=== PATIENT | female | born 1995 | race Caucasian/White ===

== ENCOUNTER 2016-04-26 17:13 | Emergency (ER) | payer OTHER ==
[2016-04-26 18:00] LABS: BASOPHIL 0.7 % (0-2); EOSINOPHIL 3.3 % (0-5); HCT 35.2 % (37.0-47.0); HGB 11.4 g/dl (12.5-16.0); LYMPHOCYTE 26.3 % (15-48); MCH 25.6 pg (25.0-31.0); MCHC 32.4 g/dL (32.0-36.0); MCV 79.1 fL (78.0-100.0); MONOCYTE 5.8 % (0-12); MPV 10.5 fL (6.0-9.5); NEUTROPHIL 63.9 % (41-80); PLT 301 K/uL (150-400); RBC 4.45 M/uL (4.20-5.40); WBC 11.1 K/uL (4.0-10.5)
[2016-04-26 18:11] LABS: INR 1.06 (0.9-1.2); PROTHROMBIN TIME 13.4 SECONDS (11.7-14.0); PTT 33.1 SECONDS (23.2-31.4)
[2016-04-26 18:17] LABS: CREATININE 0.6 mg/dL (0.5-1.0); POTASSIUM 3.8 mmol/L (3.5-5.1)
== END 2016-04-26 19:36 | disposition home or self-care (01) ==
LOC: FER 17:13
PROVIDERS: Nurse Practitioner
DX: R22.31 Localized swelling, mass and lump, right upper limb (principal); F17.210 Nicotine dependence, cigarettes, uncomplicated; Z88.0 Allergy status to penicillin; Z98.890 Other specified postprocedural states
CPT/HCPCS: 36415; 80048; 85025; 85610; 85730; 93971

== ENCOUNTER 2020-11-20 18:35 | Emergency (ER) | payer OTHER ==
[2020-11-20 19:51] LABS: BASOPHIL 0.4 % (0-2); EOSINOPHIL 2.5 % (0-5); HCT 36.6 % (37.0-47.0); HGB 11.9 g/dl (12.5-16.0); LYMPHOCYTE 30.5 % (15-48); MCH 28.2 pg (25.0-31.0); MCHC 32.5 g/dL (32.0-36.0); MCV 86.7 fL (78.0-100.0); MONOCYTE 4.7 % (0-12); MPV 10.9 fL (6.0-9.5); NEUTROPHIL 61.6 % (41-80); NRBC 0; PLT 237 K/uL (150-400); RBC 4.22 M/uL (4.20-5.40); RDW 14.3 % (11.5-14.0); WBC 12.7 K/uL (4.0-10.5)
[2020-11-20 20:10] LABS: ALBUMIN 3.6 g/dL (3.4-5.0); BILIRUBIN - TOTAL 0.2 mg/dL (0.2-1.0); BUN/CREAT RATIO (CALC) 20.7 RATIO; CREATININE 0.82 mg/dL (0.51-0.95); GLOBULIN (CALCULATION) 2.7 g/dL; POTASSIUM 4.2 mmol/L (3.5-5.1); TOTAL PROTEIN 6.3 g/dL (6.4-8.2)
== END 2020-11-20 21:30 | disposition home or self-care (01) ==
LOC: FER 18:35
PROVIDERS: Emergency Medicine
DX: R07.89 Other chest pain (principal); F17.210 Nicotine dependence, cigarettes, uncomplicated; Z88.0 Allergy status to penicillin
CPT/HCPCS: 36415; 71045; 80053; 84484; 85025; 93005